=== PATIENT | male | born 1990 | race American Indian/Alaskan Native ===

== ENCOUNTER 2021-12-28 10:34 | Emergency (ER) | payer SELFPAY ==
[2021-12-28] MEDS ORDERED: KETOROLAC 30 MG/1 ML INJ IV ONE (11:21)
[2021-12-28] MEDS ORDERED: ONDANSETRON 4 MG/2 ML INJ IV ONE (11:21)
[2021-12-28] MEDS ORDERED: MORPHINE 4 MG/1 ML INJ IV ONE (11:22)
[2021-12-28 11:51] LABS: Basophils # (Auto) 0.1 K/mm3 (0.0-0.1); Basophils % (Auto) 0.9 % (0.0-1.8); Eosinophils % (Auto) 0.4 % (0.0-4.3); Hematocrit 34.4 % (35.5-45.6); Hemoglobin 12.3 gm/dl (11.8-15.2); Lymphocytes % (Auto) 11.1 % (13.4-35.0); Mean Corpuscular HGB Conc 36 % (32-34); Monocytes # (Auto) 0.9 K/mm3 (0.0-0.8); Monocytes % (Auto) 9.4 % (0.0-7.3); Red Blood Count 5.17 M/mm3 (3.65-5.03); Red Cell Distribution Width 15.8 % (13.2-15.2)
[2021-12-28 11:52] LABS: Mean Corpuscular Volume 67 fl (84-94); Platelet Count 114 K/mm3 (140-440)
[2021-12-28 12:00] LABS: BUN/Creatinine Ratio 11; Blood Urea Nitrogen 10 mg/dL (9-20); Calcium 9.7 mg/dL (8.4-10.2); Hemolysis Index 4
[2021-12-28] MEDS ORDERED: D5W/0.2% NACL 1,000 ML IV SCH (12:00)
--- NOTE | 2021-12-28 13:19 | Emergency Department Report ---
ED General Adult HPI - General Chief complaint: Pain General Stated complaint: GEN PAIN FROM COVID SHOT Time Seen by Provider: 12/28/21 11:05 Source: patient, EMS Mode of arrival: Stretcher Limitations: No Limitations - History of Present Illness Initial comments: Chief complaint: "Body pain" HPI: This is a 31-year-old male with history of sickle cell disease who presents with diffuse body pain since this morning. He received COVID-19 vaccine 1 week ago. He denies fever, headache, cough, shortness of breath, chest pain. He has sickle cell pain crisis every few years. 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 Do not take any medication on a regular basis. -: Gradual, This morning Location: left, right, upper extremity, lower extremity Severity scale (0 -10): 10 Quality: aching Consistency: constant Improves with: none Worsens with: none Associated Symptoms: denies other symptoms Treatments Prior to Arrival: none (No treatment attempted at home) - Related Data Previous Rx's Medication Instructions Recorded Last Taken Type Ibuprofen [Motrin 800 MG tab] 800 mg PO Q8HR PRN #20 tablet 12/28/21 Unknown Rx Allergies Allergy/AdvReac Type Severity Reaction Status Date / Time No Known Allergies Allergy Verified 12/28/21 10:36 ED Review of Systems ROS: Stated complaint: GEN PAIN FROM COVID SHOT Other details as noted in HPI Comment: All other systems reviewed and negative Constitutional: denies: chills, fever, malaise Respiratory: denies: cough, shortness of breath Cardiovascular: denies: chest pain Gastrointestinal: denies: abdominal pain, nausea, vomiting Skin: denies: rash, lesions ED Past Medical Hx - Past Medical History Previous Medical History?: Yes Additional medical history: Sickle cell disease - Surgical History Past Surgical History?: No - Social History Smoking Status: Never Smoker Substance Use Type: None - Medications Home Medications: Home Medications Medication Instructions Recorded Confirmed Last Taken Type Ibuprofen [Motrin 800 MG tab] 800 mg PO Q8HR PRN #20 tablet 12/28/21 Unknown Rx ED Physical Exam - General Limitations: No Limitations General appearance: alert, in no apparent distress - Head Head exam: Present: atraumatic, normocephalic - Eye Eye exam: Present: normal appearance - ENT ENT exam: Present: mucous membranes moist - Neck Neck exam: Present: normal inspection, full ROM - Respiratory Respiratory exam: Present: normal lung sounds bilaterally. Absent: respiratory distress, wheezes, rales, rhonchi - Cardiovascular Cardiovascular Exam: Present: regular rate, normal rhythm, normal heart sounds. Absent: systolic murmur, diastolic murmur, rubs, gallop - GI/Abdominal GI/Abdominal exam: Present: soft, normal bowel sounds. Absent: distended, tenderness, guarding, rebound - Rectal Rectal exam: Present: deferred - Extremities Exam Extremities exam: Present: normal inspection - Back Exam Back exam: Present: normal inspection - Neurological Exam Neurological exam: Present: alert, oriented X3 - Psychiatric Psychiatric exam: Present: normal affect, normal mood - Skin Skin exam: Present: warm, dry, intact, normal color. Absent: rash ED Course Vital Signs 12/28/21 12/28/21 12/28/21 10:35 10:53 11:01 Temperature 98 F Pulse Rate 75 66 73 Respiratory 20 10 L Rate Blood Pressure Blood Pressure 128/72 [Left] O2 Sat by Pulse 100 100 Oximetry 12/28/21 12/28/21 12/28/21 11:05 11:07 11:09 Temperature Pulse Rate 58 L 61 61 Respiratory 12 8 L 8 L Rate Blood Pressure 120/81 126/83 126/83 Blood Pressure [Left] O2 Sat by Pulse 98 97 96 Oximetry 12/28/21 12/28/21 12/28/21 11:11 11:13 11:15 Temperature Pulse Rate 60 61 56 L Respiratory 12 16 18 Rate Blood Pressure 126/83 126/83 126/83 Blood Pressure [Left] O2 Sat by Pulse 91 95 97 Oximetry 12/28/21 12/28/21 12/28/21 11:17 11:19 11:21 Temperature Pulse Rate 62 67 57 L Respiratory 11 L 11 L 14 Rate Blood Pressure 126/83 126/83 126/83 Blood Pressure [Left] O2 Sat by Pulse 95 97 100 Oximetry 12/28/21 12/28/21 12/28/21 11:23 11:25 11:27 Temperature Pulse Rate 58 L 59 L 65 Respiratory 14 12 15 Rate Blood Pressure 126/83 108/65 108/65 Blood Pressure [Left] O2 Sat by Pulse 98 96 99 Oximetry 12/28/21 12/28/21 12/28/21 11:29 11:31 11:33 Temperature Pulse Rate 56 L 59 L 63 Respiratory 10 L 11 L 14 Rate Blood Pressure 108/65 108/65 108/65 Blood Pressure [Left] O2 Sat by Pulse 99 99 100 Oximetry 12/28/21 12/28/21 12/28/21 11:35 11:37 11:39 Temperature Pulse Rate 56 L 58 L 61 Respiratory 14 14 13 Rate Blood Pressure 108/65 108/65 155/90 Blood Pressure [Left] O2 Sat by Pulse 100 100 100 Oximetry 12/28/21 12/28/21 12/28/21 11:41 11:43 11:45 Temperature Pulse Rate 56 L 79 66 Respiratory 12 13 10 L Rate Blood Pressure 155/90 155/90 155/90 Blood Pressure [Left] O2 Sat by Pulse 99 90 99 Oximetry 12/28/21 12/28/21 12/28/21 11:47 11:49 11:51 Temperature Pulse Rate 64 71 66 Respiratory 15 13 10 L Rate Blood Pressure 155/90 155/90 155/90 Blood Pressure [Left] O2 Sat by Pulse 99 99 100 Oximetry 12/28/21 12/28/21 12/28/21 11:53 11:55 11:57 Temperature Pulse Rate 65 57 L 69 Respiratory 16 7 L 15 Rate Blood Pressure 155/90 138/83 138/83 Blood Pressure [Left] O2 Sat by Pulse 99 96 87 Oximetry 12/28/21 12/28/21 12/28/21 11:59 12:01 12:03 Temperature Pulse Rate 63 63 60 Respiratory 16 13 17 Rate Blood Pressure 138/83 138/83 138/83 Blood Pressure [Left] O2 Sat by Pulse 89 90 97 Oximetry 12/28/21 12/28/21 12/28/21 12:05 12:07 12:09 Temperature Pulse Rate 65 65 62 Respiratory 13 14 14 Rate Blood Pressure 138/83 138/83 138/83 Blood Pressure [Left] O2 Sat by Pulse 92 93 94 Oximetry ED Medical Decision Making - Lab Data Result diagrams: 12/28/21 11:32 12/28/21 11:32 Laboratory Results - last 24 hr 12/28/21 12/28/21 11:32 11:32 WBC 9.1 RBC 5.17 H Hgb 12.3 Hct 34.4 L MCV 67 L MCH 24 L MCHC 36 H RDW 15.8 H Plt Count 114 L Lymph % (Auto) 11.1 L Moore % (Auto) 9.4 H Eos % (Auto) 0.4 Baso % (Auto) 0.9 Lymph # (Auto) 1.0 L Moore # (Auto) 0.9 H Eos # (Auto) 0.0 Baso # (Auto) 0.1 Seg Neutrophils % 78.2 H Seg Neutrophils # 7.1 Percent Retic 2.14 Sodium 136 L Potassium 3.5 L Chloride 101.5 Carbon Dioxide 22 Anion Gap 16 BUN 10 Creatinine 0.9 Estimated GFR > 60 BUN/Creatinine Ratio 11 Glucose 103 H Calcium 9.7 - Medical Decision Making 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 Chemistry within normal li mits. Patient received IV hydration with hypotonic solution as well as IV ketorolac and IV morphine. Patient is pain-free. He requests prescription for ibuprofen. I have referred him to outpatient medicine physician. No evidence of thromboembolic complication or infection. Critical care attestation.: If time is entered above; I have spent that time in minutes in the direct care of this critically ill patient, excluding procedure time. ED Disposition Clinical Impression: Vaso-occlusive pain due to sickle cell disease Disposition: HOME / SELF CARE / HOMELESS Is pt being admited?: No Does the pt Need Aspirin: No Condition: Stable Prescriptions: Ibuprofen [Motrin 800 MG tab] 800 mg PO Q8HR PRN #20 tablet PRN Reason: Pain , Severe (7-10) Referrals: GALILEA GALLAGHER MD [Staff Physician] - 3-5 Days
[2021-12-28 13:49] VITALS: BP 120/56
== END 2021-12-28 13:50 | disposition home or self-care (01) ==
LOC: ED 10:34
DX: D57.219 Sickle-cell/Hb-C disease with crisis, unspecified (principal); Z79.899 Other long term (current) drug therapy
CPT/HCPCS: 36415; 80048; 85025; 85045; 96361; 96374; 96375; 99284; J1885; J2270; J2405; J7042